=== PATIENT | female | born 1965 | race Caucasian/White ===

== ENCOUNTER 2020-05-16 11:07 | Emergency (ER) | payer OTHER ==
[~2020-05-16] VITALS: Ht 165.1 cm; Wt 95.0 kg
[2020-05-16 11:09] VITALS: BP 133/79
--- NOTE | 2020-05-16 11:30 | NUR ---
PT IS A 54F COMPLAINING OF RIGHT SHOULDER PAIN AFTER GLF LAST NIGHT. IBUPROFEN BEFORE COMING IN TODAY. PATIENT PREFERS TO SIT IN CHAIR. PROVIDER AT BEDSIDE FOR EVALUATION. CALL LIGHT WITHIN REACH
--- NOTE | 2020-05-16 11:42 | NUR ---
PATIENT TO XRAY
--- NOTE | 2020-05-16 11:47 | NUR ---
PT BACK FROM XRAY
[2020-05-16] MEDS ORDERED: FURO20TA3 PO (12:01)
[2020-05-16] MEDS ORDERED: VITA1TAB38 PO (12:02)
[2020-05-16] MEDS ORDERED: MAGN300C PO (12:03)
[2020-05-16] MEDS ORDERED: BIOT10TA PO (12:03)
[2020-05-16] MEDS ORDERED: POTA20TA89 PO (12:14)
--- NOTE | 2020-05-16 12:23 | NUR ---
Patient/Caregiver given discharge instructions and they have confirmed that they understand the instructions. Patient ambulatory with steady gait.
== END 2020-05-16 12:25 | disposition home or self-care (01) ==
LOC: ED 12:14
DX: S40.011A Contusion of right shoulder, initial encounter (principal); G89.11 Acute pain due to trauma; W18.39XA Other fall on same level, initial encounter; Y93.89 Activity, other specified; Y92.098 Other place in other non-institutional residence as the place of occurrence of the external cause; Y99.8 Other external cause status
CPT/HCPCS: 99283

== ENCOUNTER → 2020-05-29 | Outpatient (CLI) | payer OTHER ==
[~2020-05-29] MED LIST: BIOT10TA PO; FURO20TA3 PO; MAGN300C PO; POTA20TA89 PO; VITA1TAB38 PO
== END | disposition home or self-care (01) ==
LOC: RAD 16:44
PROVIDERS: ATTEND Orthopaedic Surgery
DX: M19.011 Primary osteoarthritis, right shoulder (principal); M75.51 Bursitis of right shoulder

== ENCOUNTER → 2020-06-01 | Outpatient (CLI) | payer OTHER ==
[2020-06-01 07:32] LABS: BASOPHILS % (AUTO) 1 % (0-1); EOSINOPHILS % (AUTO) 1 % (1-7); LYMPHOCYTES % (AUTO) 35 % (22-44); MEAN CORPUSCULAR HGB CONC 34.2 g/dL (32.4-35.8); MEAN PLATELET VOLUME 7.9 fL (7.4-10.4); MONOCYTES % (AUTO) 6 % (2-9); NEUTROPHILS % (AUTO) 57 % (42-75); PLATELET COUNT 250 x10^3/uL (130-400); RED BLOOD COUNT 4.86 x10^6/uL (3.82-5.3); RED CELL DISTRIBUTION WIDTH 13.7 % (9.6-15.2)
[2020-06-01 07:41] LABS: ALANINE AMINOTRANSFERASE 32 U/L (12-78); ALBUMIN 4.1 g/dL (3.4-5.0); ANION GAP 3 mmol/L (5-15); CALCIUM 8.9 mg/dL (8.5-10.1); CHLORIDE 105 mmol/L (98-107); CREATININE 0.99 mg/dL (0.55-1.02)
[2020-06-01 07:45] LABS: MD NO
[2020-06-01 07:51] LABS: ALKALINE PHOSPHATASE 41 U/L (45-117); BILIRUBIN,TOTAL 0.4 mg/dL (0.2-1.0); T4 (THYROXINE) 9.4 mcg/dL (4.8-13.9)
== END | disposition home or self-care (01) ==
LOC: LAB 07:10
PROVIDERS: ATTEND Family Medicine
DX: E03.9 Hypothyroidism, unspecified (principal); R60.9 Edema, unspecified
CPT/HCPCS: 36415; 80053; 82043; 82570; 83036; 84436; 84443; 84480; 85025

== ENCOUNTER → 2020-06-18 | Outpatient (CLI) | payer OTHER ==
[2020-06-18 07:50] LABS: ALBUMIN 4.1 g/dL (3.4-5.0); ANION GAP 6 mmol/L (5-15); CALCIUM 9.2 mg/dL (8.5-10.1); CHLORIDE 107 mmol/L (98-107)
[2020-06-18 07:54] LABS: ALANINE AMINOTRANSFERASE 28 U/L (12-78); ALKALINE PHOSPHATASE 39 U/L (45-117); BILIRUBIN,TOTAL 0.4 mg/dL (0.2-1.0); CREATININE 1.16 mg/dL (0.55-1.02); TOTAL PROTEIN 7.5 g/dL (6.4-8.2)
[2020-06-18 08:18] LABS: CREATININE,URINE RANDOM 38.2 mg/dL
== END | disposition home or self-care (01) ==
LOC: LAB 07:12
PROVIDERS: ATTEND Family Medicine
DX: N18.30 Chronic kidney disease, stage 3 unspecified (principal); Z78.0 Asymptomatic menopausal state
CPT/HCPCS: 36415; 80053; 82570; 82672; 84144; 84300; 84403

== ENCOUNTER → 2020-07-03 | Outpatient (CLI) | payer OTHER | END | disposition home or self-care (01) | LOC: CFH 07:03 | PROVIDERS: ATTEND Family Medicine | DX: N17.9 Acute kidney failure, unspecified (principal); N18.9 Chronic kidney disease, unspecified | CPT/HCPCS: 76770 ==

== ENCOUNTER → 2020-07-06 | Outpatient (CLI) | payer OTHER | END | disposition home or self-care (01) | LOC: CVU 06:51 | PROVIDERS: ATTEND Family Medicine | DX: R60.9 Edema, unspecified (principal); N18.9 Chronic kidney disease, unspecified | CPT/HCPCS: 93306 ==

== ENCOUNTER → 2020-07-07 | Outpatient (CLI) | payer OTHER ==
[2020-07-07 07:35] LABS: ALANINE AMINOTRANSFERASE 29 U/L (12-78); ALBUMIN 3.9 g/dL (3.4-5.0); ANION GAP 6 mmol/L (5-15); CALCIUM 8.7 mg/dL (8.5-10.1); CHLORIDE 106 mmol/L (98-107); CREATININE 0.99 mg/dL (0.55-1.02)
[2020-07-07 07:37] LABS: ALKALINE PHOSPHATASE 38 U/L (45-117); BILIRUBIN,TOTAL 0.4 mg/dL (0.2-1.0); TOTAL PROTEIN 7.2 g/dL (6.4-8.2)
== END | disposition home or self-care (01) ==
LOC: LAB 07:04
PROVIDERS: ATTEND Family Medicine
DX: N17.9 Acute kidney failure, unspecified (principal); N18.9 Chronic kidney disease, unspecified
CPT/HCPCS: 36415; 80053; 82043; 82570

== ENCOUNTER 2020-08-11 07:31 | Outpatient (CLI) | payer OTHER | END 2020-08-11 23:59 | disposition home or self-care (01) | LOC: LAB 07:31 | PROVIDERS: ATTEND Nurse Practitioner Family | DX: Z02.9 Encounter for administrative examinations, unspecified (principal) ==

== ENCOUNTER → 2020-08-11 | Outpatient (CLI) | payer OTHER ==
[2020-08-11 08:05] LABS: BASOPHILS % (AUTO) 1 % (0-1); EOSINOPHILS % (AUTO) 1 % (1-7); LYMPHOCYTES % (AUTO) 30 % (22-44); MEAN CORPUSCULAR HGB CONC 33.5 g/dL (32.4-35.8); MEAN PLATELET VOLUME 8.1 fL (7.4-10.4); MONOCYTES % (AUTO) 5 % (2-9); NEUTROPHILS % (AUTO) 64 % (42-75); PLATELET COUNT 285 x10^3/uL (130-400); RED BLOOD COUNT 5.03 x10^6/uL (3.82-5.3); RED CELL DISTRIBUTION WIDTH 13.7 % (9.6-15.2)
[2020-08-11 08:10] LABS: MD NO
[2020-08-11 08:19] LABS: CALCIUM 9.2 mg/dL (8.5-10.1); MICROSCOPIC NOT IND
[2020-08-11 08:24] LABS: ALBUMIN 4.3 g/dL (3.4-5.0); ANION GAP 5 mmol/L (5-15); CALCIUM 9.4 mg/dL (8.5-10.1); CHLORIDE 107 mmol/L (98-107); CHOLESTEROL, TOTAL 216 mg/dL (140-239)
[2020-08-11 08:29] LABS: % IRON SATURATION 30 % (20-55); ALANINE AMINOTRANSFERASE 28 U/L (12-78); ALKALINE PHOSPHATASE 42 U/L (45-117); BILIRUBIN,TOTAL 0.4 mg/dL (0.2-1.0); CHOL/HDL RATIO 3.6; CREATININE 1.02 mg/dL (0.55-1.02); HDL CHOL % 28 % (28-40); HDL CHOLESTEROL (DIRECT) 60 mg/dL (40-60); IRON LEVEL 99 mcg/dL (50-170); LDL CHOLESTEROL,CALCULATED 113 mg/dL (54-169); LDL/HDL RATIO 1.9 (0.5-3.0); TOTAL IRON BINDING CAPACITY 330 mcg/dL (250-450); TOTAL PROTEIN 7.8 g/dL (6.4-8.2); TRIGLYCERIDES 213 mg/dL (50-200); VLDL CHOLESTEROL 43 mg/dL (0-25)
[2020-08-11 08:31] LABS: TOTAL PROTEIN,URINE RANDOM < 5 mg/dL (0-12)
== END | disposition home or self-care (01) ==
LOC: LAB 07:28
PROVIDERS: ATTEND Internal Medicine Nephrology
DX: N18.2 Chronic kidney disease, stage 2 (mild) (principal); R79.9 Abnormal finding of blood chemistry, unspecified
CPT/HCPCS: 36415; 80053; 80061; 81003; 82043; 82306; 82310; 82570; 82728; 83036; 83540; 83550; 83735; 83970; 84100; 84156; 84550; 85025

== ENCOUNTER 2020-10-14 07:03 | Outpatient (CLI) | payer OTHER | END 2020-10-14 23:59 | disposition home or self-care (01) | LOC: CFH 07:03 | PROVIDERS: ATTEND Obstetrics & Gynecology | DX: Z12.31 Encounter for screening mammogram for malignant neoplasm of breast (principal) | CPT/HCPCS: 77063; 77067 ==

== ENCOUNTER 2020-11-06 07:08 | Outpatient (CLI) | payer OTHER ==
[2020-11-06 07:56] LABS: ANION GAP 4 mmol/L (5-15); CALCIUM 8.1 mg/dL (8.5-10.1); CHLORIDE 108 mmol/L (98-107)
== END 2020-11-06 23:59 | disposition home or self-care (01) ==
LOC: LAB 07:08
PROVIDERS: ATTEND Nurse Practitioner Family
DX: N28.9 Disorder of kidney and ureter, unspecified (principal); R19.7 Diarrhea, unspecified
CPT/HCPCS: 36415; 80048; 82043; 82570